=== PATIENT | male | born 1940 | race Caucasian/White ===

== ENCOUNTER 2017-06-18 14:47 | Emergency (ER) | payer MEDICARE, BC ==
[~2017-06-18] VITALS: Ht 182.9 cm; Wt 106.0 kg
[2017-06-18 14:49] VITALS: BP 178/77; PULSE 89; RESP 14; TEMP 98.3; O2SAT 98
--- NOTE | 2017-06-18 16:51 | PD ---
HPI Chief Complaint: Pain: Acute or Chronic Time Seen by Provider: 16:35 Travel History International Travel<30 days: No Contact w/Intl Traveler<30days: No Traveled to known affect area: No History of Present Illness HPI 77-year-old male visiting from [place], presents the emergency department with pain in the right posterior ankle and Achilles. Patient states he's had this several times in the past over the years, and his doctor in [place] gives him a course of prednisone which usually treats it easily. Patient also has history of gout, but he does not feel this is a gout flare. Patient denies fever, chills, or other symptoms. Patient states he woke up with it last night. He denies any other symptoms. Currently pain is about a 5 out of 10 with walking. He is allergic to propoxyphene. PFSH Past Medical History Heart Rhythm Problems: Yes Cerebrovascular Accident: Yes (TIA) Gastrointestinal Disorders: Yes (IBS) Hypertension: Yes Thyroid Disease: Yes Tetanus Vaccination: Unknown Past Surgical History Abdominal Surgery: Yes (HERNIA REPAIR) Cholecystectomy: Yes Other Surgery: Yes (MULTIPLE SKIN BIOPSIES) Social History Alcohol Use: No Tobacco Use: No Substance Use: No Allergies-Medications (Allergen,Severity, Reaction): Coded Allergies: propoxyphene (Verified Allergy, Unknown, 06/18/17) Review of Systems Except as stated in HPI: all other systems reviewed are Neg General / Constitutional: No: Fever, Chills Eyes: No: Visual changes HENT: No: Headaches Cardiovascular: No: Chest Pain or Discomfort Respiratory: No: Shortness of Breath Gastrointestinal: No: Abdominal Pain Genitourinary: No: Dysuria Musculoskeletal: Positive: Arthralgias, Pain Skin: No Rash Neurologic: No: Weakness Psychiatric: No: Depression Endocrine: No: Polydipsia Hematologic/Lymphatic: No: Easy Bruising Physical Exam Narrative GENERAL: Patient appears in no acute distress. SKIN: Warm and dry. Normal color. Normal turgor. No erythema or signs of cellulitis. HEAD: Atraumatic. Normocephalic. EYES: Pupils equal and round. No scleral icterus. No injection or drainage. ENT: No nasal bleeding or discharge. Mucous membranes pink and moist. Thanks is clear. NECK: Trachea midline. Neck is supple. CARDIOVASCULAR: Regular rate and rhythm. RESPIRATORY: No accessory muscle use. Clear to auscultation. Breath sounds equal bilaterally. MUSCULOSKELETAL: Extremities without clubbing, cyanosis, or edema. No obvious deformities. The right foot and ankle appear normal. There is no significant swelling or erythema or warmth. Patient complains of pain with outpatient of the right Achilles tendon consistent with Achilles tendinitis. NEUROLOGICAL: Awake and alert. No obvious cranial nerve deficits. Motor grossly within normal limits. Five out of 5 muscle strength in the arms and legs. Normal speech. PSYCHIATRIC: Appropriate mood and affect; insight and judgment normal. Data Data Last Documented VS Vital Signs Date Time Temp Pulse Resp B/P (MAP) Pulse Ox O2 Delivery O2 Flow Rate FiO2 06/18/17 14:49 98.3 89 14 178/77 (110) 98 Orders Orders Prednisone (Deltasone) (06/18/17 17:00) [facility] Medical Decision Making Medical Screen Exam Complete: Yes Emergency Medical Condition: Yes Differential Diagnosis Right ankle pain. Gouty flare. Achilles tendinitis. Narrative Course Patient is medically stable at time of exam. Radiographic imaging is not felt warranted based on the history and physical. Patient is given 20 mg prednisone by mouth now. Patient was treated with a short course of prednisone taper, and can take Tylenol as well as needed. Recommend heat to the area followed by ice, as well as supportive stockings. Patient should follow with his primary care physician upon return to [place] as needed or return to emergency department. Diagnosis Primary Impression: Right Achilles tendinitis Referrals: Primary Care Physician Patient Instructions: Achilles Tendinitis (ED), Achilles Tendinitis Exercises ( GEN), General Instructions Additional Instructions: Radiographic imaging is not felt warranted based on the history and physical. Patient is given 20 mg prednisone by mouth now. Patient was treated with a short course of prednisone taper, and can take Tylenol as well as needed. Recommend heat to the area followed by ice, as well as supportive stockings. Patient should follow with his primary care physician upon return to [place] as needed or return to emergency department. Med/Other Pt SpecificInfo: Prescription(s) given Disposition: 01 DISCHARGE HOME Condition: Stable Raji Hutton Jun 18, 2017 16:51
[2017-06-18] MEDS ORDERED: PRED10PA PO (16:52)
[2017-06-18 16:53] VITALS: BP 170/68
[2017-06-18] MEDS ORDERED: predniSONE 20 MG TAB PO ONE (17:00)
== END 2017-06-18 17:12 | disposition home or self-care (01) ==
LOC: NEPD 14:47
DX: M76.61 Achilles tendinitis, right leg (principal); I10 Essential (primary) hypertension; E07.9 Disorder of thyroid, unspecified; K58.9 Irritable bowel syndrome, unspecified; Z86.73 Personal history of transient ischemic attack (TIA), and cerebral infarction without residual deficits
CPT/HCPCS: 99283; J7512